=== PATIENT | female | born 2000 | race Asian ===

== ENCOUNTER 2023-07-31 07:09 | Emergency (ER) | payer OTHER ==
[2023-07-31 07:26] VITALS: BP 129/79; O2SAT 97
--- NOTE | 2023-07-31 07:56 | ED Physician Documentation ---
PD HPI NECK PAIN - Stated complaint Stated Complaint: NECK PX - Chief complaint Chief Complaint: Trauma Hd/Nk - History obtained from History obtained from: Patient - Additional information Additional information: Patient is a 22-year-old female with no significant past medical history presenting for evaluation of right-sided neck pain that has been present for 8 days. Patient states it started after doing hack squats at the gym. This was last Sunday. She continued to workout at the gym Sunday through and does report that she would have pain with doing certain pushing and pulling maneuvers but continued to exercise. She has tried acetaminophen without improvement. She has not tried ice or heat. She denies radiation of the pain elsewhere. Pain is worse with certain movements and feels like a tightness. Denies falls or other injury. No numbness or weakness. Denies headache. Review of Systems Constitutional: denies: Fever Cardiac: denies: Chest pain / pressure Respiratory: denies: Dyspnea GI: denies: Abdominal Pain Musculoskeletal: reports: Neck pain Neurologic: denies: Syncope, Headache PD PAST MEDICAL HISTORY - Past Medical History Past Medical History: No - Past Surgical History Past Surgical History: No - Present Medications Home Medications: Ambulatory Orders Medication Instructions Recorded Confirmed Cyclobenzaprine [Flexeril] 10 mg PO TID PRN #20 tablet 07/31/23 Ibuprofen [Motrin] 800 mg PO Q8H PRN #30 tablet 07/31/23 Lidocaine Patch 5% [Lidoderm Patch] 1 patch TOP DAILY PRN #10 patch 07/31/23 - Allergies Allergies/Adverse Reactions: Allergies Allergy/AdvReac Type Severity Reaction Status Date / Time No Known Drug Allergies Allergy Verified 07/31/23 07:57 - Social History Does the pt smoke?: No Smoking Status: Never smoker Does the pt drink ETOH?: No Does the pt have substance abuse?: No - POLST Patient has POLST: No PD ED PE NORMAL - General General: Alert and oriented X 3, No acute distress, Well developed/nourished - HEENT HEENT: Atraumatic, Moist mucous membranes, Pharynx benign - Neck Neck: Supple, no meningeal sign, No bony TTP, Other (Good range of motion with neck With lateral rotation, extension and flexion) - Cardiac Cardiac: RRR, Strong equal pulses - Respiratory Respiratory: No respiratory distress, Clear bilaterally - Derm Derm: Warm and dry - Extremities Extremities: Other (Normal strength with shoulder extension, arm flexion and extension, wrist extension and hand grasp) - Neuro Neuro: No motor deficit, No sensory deficit PD ED PE EXPANDED - HESHAYLEE BARNES Visual: 1 - tenderness Results - Vitals Vitals: Vital Signs - 24 hr 07/31/23 07:22 Temperature 36.5 C Heart Rate 78 Respiratory 18 Rate Blood Pressure 129/79 O2 Saturation 97 Oxygen O2 Source Room air PD Medical Decision Making - ED course ED course: Patient with atraumatic right-sided neck pain after lifting weights at the gym. No history or exam findings to suggest dissection. The patient has good range of motion of the neck. Patient has still been working out despite pain in the area. Encouraged her to wait on doing any activities that may further exacerbate her pain. Recommend trial of supportive care including rest, anti- inflammatories, lidocaine patches, ice versus heat and muscle relaxer. Patient understands importance of follow-up with primary care at [facility] as well as advised on concerning symptoms to return for. Departure - Departure Disposition: 01 Home, Self Care Clinical Impression: Neck muscle strain Condition: Stable Instructions: ED Sprain Strain Neck Follow-Up: [facility] [Provider Group] Prescriptions: Cyclobenzaprine [Flexeril] 10 mg PO TID PRN #20 tablet PRN Reason: Spasms Lidocaine Patch 5% [Lidoderm Patch] 1 patch TOP DAILY PRN #10 patch PRN Reason: pain Ibuprofen [Motrin] 800 mg PO Q8H PRN #30 tablet PRN Reason: PAIN &/OR FEVER Comments: Your prescriptions were sent to [facility] in [place]. I would recommend limiting activities such as weightlifting that could exacerbate your pain. Please have close follow-up with your primary care at the [facility]. Forms: PCP List, Activity restrictions Discharge Date/Time: 07/31/23 08:11
[2023-07-31] MEDS: IBUPROFEN 800 MG TABLET PO STA (08:00)
[2023-07-31] MEDS: LIDOCAINE PATCH 5% TOP STA (08:00)
== END 2023-07-31 08:11 | disposition home or self-care (01) ==
LOC: ED 07:09
DX: S16.1XXA Strain of muscle, fascia and tendon at neck level, initial encounter (principal); X50.1XXA Overexertion from prolonged static or awkward postures, initial encounter; Y93.B9 Activity, other involving muscle strengthening exercises; Y92.39 Other specified sports and athletic area as the place of occurrence of the external cause
CPT/HCPCS: 99283; A9270

== ENCOUNTER 2023-12-17 10:37 | Outpatient (CLI) | payer OTHER ==
--- NOTE | 2023-12-18 07:58 | Ultrasound Report ---
LIMITED ULTRASOUND OF LEFT BREAST: 12/17/2023 CLINICAL: Palpable left breast lump by physician. No prior exams were available for comparison. Ultrasound of the left breast lower inner quadrant was performed. Collins scale images of the real-jenny e examination were reviewed. No significant abnormalities were seen sonographically in the left breast. IMPRESSION: NEGATIVE There is no sonographic evidence of malignancy. There are no abnormalities seen in the left breast to correspond with the areas of clinical concern a t 6, 7, 8, and 9 o'clock, however, clinical correlation and clinical followup are recommended. This exam was interpreted at Station ID: [id number]. Electronically Signed By: Roscoe Still M.D. lc/:12/17/2023 11:10:38 letter sent: No_Letter Ultrasound BI-RADS: 1 Negative BI-RADS CATEGORY: (1) - 1 Unspecified - other recall n/a LATERALITY: (B)
== END 2023-12-17 10:38 | disposition home or self-care (01) ==
LOC: DI 10:37
PROVIDERS: ATTEND Nurse Practitioner Family
DX: N63.23 Unspecified lump in the left breast, lower outer quadrant (principal)